=== PATIENT | female | born 1950 | race Caucasian/White ===

== ENCOUNTER → 2023-09-25 | Day surgery (SDC) | payer OTHER, BC | END | disposition home or self-care (01) | LOC: JRADUS-SUR 07:33 | PROVIDERS: ATTEND Internal Medicine | PROC: 0H9U3ZX Drainage of Left Breast, Percutaneous Approach, Diagnostic (ICD-10-PCS; principal; 2023-09-25) | PROC: 07963ZX Drainage of Left Axillary Lymphatic, Percutaneous Approach, Diagnostic (ICD-10-PCS; 2023-09-25) | DX: C50.912 Malignant neoplasm of unspecified site of left female breast (principal) | CPT/HCPCS: 19083; 19084; 77065-TC; 87899; 88305-TC; 88342-TC; A4648 ==